=== PATIENT | female | born 1995 | race Caucasian/White ===

== ENCOUNTER 2017-04-29 22:51 | Emergency (ER) | payer MEDICAID, OTHER ==
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
[2017-04-29] MEDS ORDERED: TYLENOL EXTRA STRENGTH 500 MG PO STA (23:15)
[2017-04-29] MEDS ORDERED: TYLENOL EXTRA STRENGTH 500 MG ONE (23:19)
[2017-04-30 01:04] VITALS: BP 122/74; PULSE 76; O2SAT 99
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
== END 2017-04-30 01:04 | disposition home or self-care (01) ==
LOC: ED 22:51
DX: M25.521 Pain in right elbow (principal); S00.11XA Contusion of right eyelid and periocular area, initial encounter; R51 Headache; V47.5XXA Car driver injured in collision with fixed or stationary object in traffic accident, initial encounter
CPT/HCPCS: 70450; 70486; 73080; 84703; 99283; A9270-GY